=== PATIENT | female | born 1960 | race Caucasian/White ===

== ENCOUNTER 2024-09-22 14:16 | Outpatient (CLI) | payer BC, OTHER | END 2024-09-22 23:59 | disposition home or self-care (01) | LOC: MRI 14:16 | PROVIDERS: ATTEND Physician Assistant | DX: M43.16 Spondylolisthesis, lumbar region (principal); M53.3 Sacrococcygeal disorders, not elsewhere classified; K57.30 Diverticulosis of large intestine without perforation or abscess without bleeding; M54.42 Lumbago with sciatica, left side; M47.818 Spondylosis without myelopathy or radiculopathy, sacral and sacrococcygeal region; I25.10 Atherosclerotic heart disease of native coronary artery without angina pectoris; M46.1 Sacroiliitis, not elsewhere classified; M16.0 Bilateral primary osteoarthritis of hip | CPT/HCPCS: 72148; 72192 ==